=== PATIENT | female | born 1950 | race Caucasian/White ===

== ENCOUNTER 2016-11-10 14:02 | Outpatient (CLI) | payer OTHER ==
[2016-11-10] MEDS ORDERED: FLUMAZENIL 0.5 MG/5 ML MDV IVP ONE (14:32)
[2016-11-10] MEDS ORDERED: MIDAZOLAM 2 MG/2 ML VIAL ONE (14:33)
[2016-11-10] MEDS ORDERED: fentaNYL 100 MCG/2 ML INJ ONE (14:33)
[2016-11-10] MEDS ORDERED: NALOXONE HCL 0.4 MG/ML INJ ONE (14:33)
[2016-11-10] MEDS ORDERED: GADOBUTROL 10 ML VIAL IVP ONE (15:50)
[2016-11-10] MEDS ORDERED: ONDANSETRON 4 MG/2 ML VIAL ONE (16:55)
--- NOTE | 2016-11-10 17:25 | MR ---
MRI of the Brain (Without and With Contrast) with IV moderate/conscious sedation Clinical Indications: History of non-Hodgkin's lymphoma. Slurred speech September 2016. Comparison: None. Intravenous moderate sedation: After witnessed informed consent was obtained. Moderate sedation was p erformed with the uneventful intravenous administration of Versed 3 mg and fentanyl 150 mcg over 1548 -1628 hours, 40 minutes under the supervision of the radiology nurse and consenting radiologist. No i mmediate complications. Technique: T1-weighted images were acquired axially and sagittally from the foramen magnum to the ve rtex. Axial fast inversion-recovery, fast T2-weighted, and diffusion-weighted axial images were obta ined without contrast. Postcontrast axial, coronal and sagittal T1-weighted images with the uneventfu l intravenous administration of 7.5 mL Gadavist contrast. Findings: The ventricles, cisterns, and sulci are widened consistent with atrophy. No hydrocephalus , midline shift, herniation, or epidural/subdural hematomas. No intracranial hemorrhage or masses. Di ffusion-weighted images demonstrate no acute infarct. Cerebellar tonsils are in normal position. Pitu itary gland is normal in size. Normal signal flow-void in the superior sagittal sinus, basilar artery , and bilateral internal carotid arteries indicating patency. Several nonspecific bilateral white mat ter hyperintense T2/FLAIR signal abnormalities without mass effect or enhancement. Mild mucosal thick ening in bilateral ethmoid and maxillary sinuses. In the right frontal lobe anterior lateral aspect a t the level of the lateral ventricles, there is a single subcortical 3-mm focus of enhancement with a ssociated hemosiderin, postcontrast axial image 34 and precontrast axial image 15. Left posterior fro ntal parafalcine 7-mm partially calcified meningioma. Impression: 1. Mild atrophy. 2. No acute hemorrhage, definite acute infarct, hydrocephalus or mass effect. 3. Multiple nonspecific hyperintense T2/FLAIR signal abnormalities in the white matter of bilateral c erebral hemispheres. Differential diagnosis includes moderate microvascular ischemic gliosis, post-in fectious/post-inflammatory sequela, atypical demyelinating disease, or migraine-related sequela. 4. Right frontal lobe subcortical enhancing 3-mm lesion with associated hemosiderin. No additional en hancing lesions. This may represent a tiny solitary hemorrhagic metastasis, but is nonspecific. Follo w up recommended. 5. Left subcentimeter parafalcine extra-axial meningioma.
[2016-11-10] MEDS ORDERED: NS 1,000 ML IV SCH (18:30)
== END 2016-11-10 17:25 | disposition home or self-care (01) ==
LOC: FIMAGING 14:02
PROVIDERS: ATTEND Internal Medicine Hematology & Oncology
DX: R47.81 Slurred speech (principal); Z85.72 Personal history of non-Hodgkin lymphomas; G31.9 Degenerative disease of nervous system, unspecified
CPT/HCPCS: 70553; A9585; J2250; J2405; J3010; J2310

== ENCOUNTER 2018-03-04 10:56 | Inpatient (IN) | payer OTHER ==
[2018-03-04] MEDS ORDERED: ACETAMINOPHEN 500 MG TAB PO ONE (12:17)
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
[2018-03-04] MEDS ORDERED: NS 1,000 ML IV ONE ×2 (13:23)
[2018-03-04] MEDS ORDERED: fentaNYL 100 MCG/2 ML INJ ONE (13:26)
[2018-03-04 13:30] LABS: PLATELET COUNT 174 10^3/uL (150-400)
[2018-03-04 13:38] LABS: INR 0.97 (0.83-1.16); PROTIME(PATIENT) 13.1 SEC (12.0-15.0)
[2018-03-04] MEDS: ONDANSETRON 4 MG/2 ML VIAL IVP ONE (13:40)
--- NOTE | 2018-03-04 13:42 | CPEKG ---
Heart Rate: 75 RR Interval: 800 P-R Interval: 168 QRSD Interval: 92 QT Interval: 404 QTC Interval: 452 P [place]: 21 QRS [place]: 60 T Wave [place]: 63 EKG Severity - NORMAL ECG - EKG Impression: SINUS RHYTHM Electronically Signed By: Brian Shepherd 04-Mar-2018 15:47:01
[2018-03-04] MEDS ORDERED: IMMUNE GLOBULIN 5 GM/50 ML VIAL IV ONE ×2 (15:45→16:45)
[2018-03-04] MEDS ORDERED: IMMUNE GLOBULIN 20 GM/200 ML VIAL IV ONE (15:45)
[2018-03-04] MEDS ORDERED: ACETAMINOPHEN 325 MG TAB PO SCH (15:45)
[2018-03-04] MEDS ORDERED: diphenhydrAMINE 25 MG CAP PO SCH (15:45)
[2018-03-04] MEDS ORDERED: ONDANSETRON 4 MG/2 ML VIAL IVP PRN (15:59)
[2018-03-04] MEDS ORDERED: LR 1,000 ML IV SCH (16:00)
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
[2018-03-04] MEDS: IMMUNE GLOBULIN 20 GM/200 ML VIAL IV ONE ×2 (17:16→19:34)
[2018-03-04] MEDS: AMOXICILLIN/CLAVULANATE POT 875/125 MG TAB PO SCH (20:42)
[2018-03-04] MEDS: ACYCLOVIR 400 MG TAB PO SCH (20:42)
[2018-03-04] MEDS: PANTOPRAZOLE SODIUM 40 MG TAB PO SCH (20:43)
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
[2018-03-04] MEDS: ACETAMINOPHEN 500 MG TAB PO SCH (22:53)
[2018-03-05] MEDS: HYDROmorphONE/DILAUDID 2 MG TAB PO PRN ×3 (01:12→17:52)
[2018-03-05] MEDS ORDERED: BUPIVACAINE 0.5% 30 ML SDV ONE (02:38)
[2018-03-05] MEDS ORDERED: POLYMYXIN B SULFATE 500,000 UNIT/10 ML SYR IRR ONE (02:38)
--- NOTE | 2018-03-05 02:45 | SOAPPROG ---
[facility] Progress Note Assessment/Plan: Assessment: 67-year-old female with progression of what appeared to be relatively benign swelling of her left lower extremity with developing signs and symptoms of compartment syndrome Plan: Patient has been NPO Recommend emergent medial and lateral fasciotomies. Patient understands the risks of surgery including general anesthesia and inherent risks of surgery that include bleeding infection and damage to surrounding anatomic structures specifically with this procedure there is very high risk of need for additional procedures and possible skin grafting. Ultimately the risk of no surgery is higher than surgery itself. 03/05/18 02:45 Subjective: Contacted by for nurse by telephone at 2:07 a.m. Patient was evaluated at the bedside just before 2:30 a.m. She is in much more distressed discomfort with pain located to mostly the medial aspect of the leg. Also noted is some focal decrease in sensation at the mid aspect of the medial leg. She was also administered Dilaudid which is not helping her pain. She is not having any pain over the anterior lateral aspect of her leg. She is still able to move her toes and ankle without significant discomfort. Objective: Vital Signs Temp Pulse Resp BP Pulse Ox 36.6 C 80 16 129/73 H 97 03/04/18 23:23 03/04/18 23:23 03/04/18 23:23 03/04/18 23:23 03/04/18 23:23 03/03/18 03/04/18 03/05/18 05:59 05:59 05:59 Intake Total 1000 Balance 1000 PT 13.1 SEC (12.0-15.0) 03/04/18 13:20 INR 0.97 (0.83-1.16) 03/04/18 13:20 Awake alert and oriented More significant distress due to pain Compartments have increased in swelling but are still compressible. However medially there are significantly tender to palpation there is some increased ecchymosis she notes subjective decreased sensation and the midportion of the medial aspect of the leg in the saphenous nerve distribution as well as in the 2nd and 3rd toes sensation is intact however but diminished compared to the contralateral side. She still has palpable DP and PT pulses no tenderness to palpation over the anterior and lateral compartments. Continues to have sensation in the peroneal nerve distribution as well as distally throughout the foot and ankle with the exception of the 2nd and 3rd toes ICD10 Worksheet Patient Problems: Problems Problem Status Onset Compartment syndrome of left lower extremity Acute
[2018-03-05] MEDS ORDERED: CEFAZOLIN 2 GM/DEXTROSE/100 ML BAG IV ONE (03:07)
--- NOTE | 2018-03-05 03:11 | PDANEPAE ---
ANE History of Present Illness fasciotomies L LE for compartment syndrome ANE Past Medical History - Cardiovascular History Hx Hypertension: No Hx Arrhythmias: No Hx Chest Pain: No Hx Coronary Artery / Peripheral Vascular Disease: No Hx CHF / Valvular Disease: No Hx Palpitations: No - Pulmonary History Hx COPD: No Hx Asthma/Reactive Airway Disease: No Hx Recent Upper Respiratory Infection: Yes Hx Oxygen in Use at Home: No Hx Sleep Apnea: Yes Sleep Apnea Screening Result - Last Documented: Positive Pulmonary History Comment: September 2016 upper respiratory - Neurologic History Hx Cerebrovascular Accident: No Hx Seizures: No Hx Dementia: No Neurologic History Comment: slurred speech recently - Endocrine History Hx Diabetes: No - Renal History Hx Renal Disorders: No - Liver History Hx Hepatic Disorders: No - Neurological & Psychiatric Hx Hx Neurological and Psychiatric Disorders: Yes Neurological / Psychiatric History Comment: slurred speech - Cancer History Hx Cancer: Yes Cancer History Comment: malt lymphoma - Congenital Disorder History Hx Congenital Disorders: No - GI History Hx Gastrointestinal Disorders: Yes Gastrointestinal History Comment: tumors removed from Stomach - Other Health History Other Health History: recieving IGG transfusion - Chronic Pain History Chronic Pain: No - Surgical History Prior Surgeries: tonsillectomy, Cholecystecomy, lacrimal gland left eye, stomach tumors removed ANE Review of Systems Review of Systems: - Exercise capacity Exercise capacity: >=4 METS ANE Patient History - Allergies Allergies/Adverse Reactions: clindamycin Allergy (Intermediate, Verified 08/26/11 08:57) Diarrhea minocycline [From Minocin] Allergy (Verified 03/04/18 11:01) Penicillins Allergy (Verified 08/26/11 08:58) Rash - Home Medications Home medications: home medication list seen and reviewed Home Medications: Acyclovir [Acyclovir] 400 mg PO BID 03/04/18 [Last Taken 03/04/18] Amoxicillin/Potassium Clav [Amox-Clav 875-125 mg Tablet] 1 tab BID 03/04/18 [ Last Taken 03/04/18] Aspirin [Aspirin 81mg (*)] 81 mg PO DAILY 03/04/18 [Last Taken Unknown] Famotidine [Pepcid 20 MG (*)] 20 mg PO DAILY PRN 03/04/18 [Last Taken Unknown] celeCOXIB [CeleBREX] 100 mg PO BID 03/04/18 [Last Taken Unknown] - NPO status NPO Status: no food or drink >8 hours (sips with meds only) NPO Since - Liquids (Date): 03/05/18 NPO Since - Liquids (Time): 01:15 NPO Since - Solids (Date): 03/04/18 NPO Since - Solids (Time): 09:00 - Smoking Hx Smoking Status: Never smoked - Family Anes Hx Family Hx Anesthesia Complications: no ANE Labs/Vital Signs - Labs Result Diagrams: 03/04/18 13:20 03/04/18 13:20 - Vital Signs Blood Pressure: 129/73 Heart Rate: 80 Respiratory Rate: 16 O2 Sat (%): 97 Height: 165.1 cm Weight: 77.111 kg ANE Physical Exam - Airway Mallampati Score: Class 2 Mouth exam: normal dental/mouth exam - Pulmonary Pulmonary: no respiratory distress - Cardiovascular Cardiovascular: regular rate and rhythym - ASA Status ASA Status: II ANE Anesthesia Plan Anesthesia Plan: GA w LMA
[2018-03-05] MEDS ORDERED: PROPOFOL/EMULSION 500 MG/50 ML BOTTLE IV ONE (03:17)
[2018-03-05] MEDS ORDERED: fentaNYL 100 MCG/2 ML INJ ONE (03:17)
[2018-03-05] MEDS ORDERED: DEXAMETHASONE 4 MG/ML VIAL ONE ×2 (04:04)
[2018-03-05] MEDS ORDERED: ONDANSETRON 4 MG/2 ML VIAL ONE ×2 (04:05→04:59)
[2018-03-05] MEDS ORDERED: NALOXONE HCL 0.4 MG/ML INJ IVP PRN (04:13)
[2018-03-05] MEDS ORDERED: fentaNYL 100 MCG/2 ML INJ IVP PRN (04:13)
[2018-03-05] MEDS ORDERED: HYDROmorphONE/DILAUDID 2 MG/ML INJ IVP PRN (04:13)
[2018-03-05] MEDS ORDERED: LR 500 ML IV PRN (04:13)
[2018-03-05] MEDS ORDERED: DEXAMETHASONE 4 MG/ML VIAL IVP PRN (04:13)
[2018-03-05] MEDS ORDERED: PHENYLEPHRINE HCL 100 MCG/ML SYR IVP PRN (04:13)
[2018-03-05] MEDS ORDERED: MEPERIDINE 25 MG/0.5 ML AMP IVP PRN (04:13)
[2018-03-05] MEDS ORDERED: ONDANSETRON 4 MG/2 ML VIAL IVP PRN (04:13)
[2018-03-05] MEDS ORDERED: HYDROCODONE/APAP 5/325 TAB PO PRN (04:13)
[2018-03-05] MEDS ORDERED: METOCLOPRAMIDE 10 MG/2 ML VIAL IVP PRN (04:13)
[2018-03-05] MEDS ORDERED: LABETALOL HCL 5 MG/ML 20 ML MDV IVP PRN (04:13)
[2018-03-05] MEDS ORDERED: oxyCODONE IR 5 MG TAB PO PRN (04:13)
[2018-03-05] MEDS ORDERED: ALBUTEROL 3 ML DEYVIAL IH PRN (04:13)
[2018-03-05] MEDS ORDERED: PROMETHAZINE HCL 25 MG/ML INJ IVP PRN (04:13)
--- NOTE | 2018-03-05 04:39 | POSTOPPROG ---
Post Op Note Date of Operation: 03/05/18 Surgeon: Uvaldo Schmid Anesthesiologist: Zack SARABIA Anesthesia: GET(General Endotracheal) Pre-op Diagnosis: Left leg compartment syndrome Post-op Diagnosis: Left leg subcuanteous degloving injury with subcutaneous hematoma Procedure: Left leg I&D with hematoma evacuation, posterior compartments release Findings: ~300cc suprafascial hematoma Inf/Abcess present in the surg proc area at time of surgery?: No EBL: 50-100 Complications: none
--- NOTE | 2018-03-05 04:59 | POSTANESTH ---
Post Anesthetic Evaluation Cardiovascular Status: Normal, Stable, Similar to Pre-Op Cond Respiratory Status: Normal, Stable, Tx Decrease in SpO2 (O2 by NC) Level of Consciousness/Mental Status: Can Participate in Eval, Mildly Sleepy, Arousable Pain Control: Inadeq, Add Tx Required (fentanyl being given) Nausea/Vomiting Control: Adequate, Prn Tx Ordered Complications Possibly Related to Anesthesia: None Noted
[2018-03-05] MEDS ORDERED: PROMETHAZINE HCL 25 MG/ML INJ ONE (05:10)
[2018-03-05] MEDS ORDERED: PETROLAT,WHT/MIN OIL/SOD CHL 3.5 GM OPHT.OINT EACHEYE PRN (10:18)
--- NOTE | 2018-03-05 10:52 | SOAPPROG ---
SOAP Progress Note Assessment/Plan: Assessment: possible corneal abrasion. Plan: Dr. Huff consulted by phone. EES opthalmic ointment recomended Qid. Will contact semiconductor processing group leader opthalmologists if no improvement over 24 hours. 03/05/18 10:50 Objective: Vital Signs Temp Pulse Resp BP Pulse Ox 37.6 C 82 18 140/70 H 90 L 03/05/18 08:45 03/05/18 08:45 03/05/18 08:45 03/05/18 08:45 03/05/18 08:45 03/04/18 03/05/18 03/06/18 05:59 05:59 05:59 Intake Total 2200 Output Total 325 Balance 1875 PT 13.1 SEC (12.0-15.0) 03/04/18 13:20 INR 0.97 (0.83-1.16) 03/04/18 13:20 ICD10 Worksheet Patient Problems: Problems Problem Status Onset Compartment syndrome of left lower extremity Acute
[2018-03-05] MEDS: ACETAMINOPHEN 500 MG TAB PO SCH ×3 (10:55→23:32)
[2018-03-05] MEDS: ceFAZolin 2 GM/DEXTROSE 100 ML IV SCH ×2 (11:02→18:08)
[2018-03-05] MEDS: ASPIRIN EC 81 MG TAB PO SCH (11:04)
[2018-03-05] MEDS: ACYCLOVIR 400 MG TAB PO SCH ×2 (11:04→20:48)
[2018-03-05] MEDS: PANTOPRAZOLE SODIUM 40 MG TAB PO SCH (11:04)
--- NOTE | 2018-03-05 13:24 | TRAUMAPNT ---
Trauma Tertiary Progress Note New Findings: Patient went to OR at 3 AM for exploration due to increasing pain. Subcutaneous hematoma found, compartments released. She did suffer a corneal abrasion. Assessment/Plan: PAD#1 Assessment: Doing well without new findings Plan: Discharge plans per Dr. Schmid Subjective: My eye pain has resolved with the ointment Objective: Vital Signs Temp Pulse Resp BP Pulse Ox 36.9 C 88 17 134/65 H 90 L 03/05/18 11:16 03/05/18 11:16 03/05/18 11:16 03/05/18 11:16 03/05/18 11:16 03/04/18 03/05/18 03/06/18 05:59 05:59 05:59 Intake Total 2200 Output Total 325 Balance 1875 PT 13.1 SEC (12.0-15.0) 03/04/18 13:20 INR 0.97 (0.83-1.16) 03/04/18 13:20 - C-Spine Clearance Cervical Spine Cleared: Yes Provider who Cleared Cervical Spine: Clem Physical Exam - Physical Exam General Appearance: WD/WN, alert, no apparent distress EENT: other (Left eye patched) Neck: non-tender, full range of motion, supple, normal inspection Respiratory: chest non-tender, lungs clear, normal breath sounds Cardiac/Chest: regular rate, rhythm Abdomen: normal bowel sounds, non-tender, soft Pelvic Exam: deferred Rectal: deferred Back: Normal inspection Skin: normal color, warm/dry Extremities: normal range of motion, other (left lower leg incision dressing dry and intact) Neuro/Psych: no motor/sensory deficits, alert, normal mood/affect, oriented x 3 Time Spent w/Patient (minutes): 25
[2018-03-05] MEDS: ERYTHROMYCIN 0.5% 1 GM OPHT.OINT LEFTEYE SCH ×3 (14:46→20:49)
--- NOTE | 2018-03-05 14:53 | ASMTCASEMG ---
Living Arrangements What is your living Answers: With Spouse arrangement? Who do you live with? Type Of Residence What kind of residence do Answers: House you live in? Discharge Plan Comments Coordination Status Comments Notes: Pt is a 67 y/o female admitted for a crush injury RLE. Therapies have been ordered and awaiting recommendations. Needs are TBD at this time. Jahaira Dela Cruz is following this case to determine appropriateness for inpatient rehab. CM to follow. Plan: TBD Date Signed: 03/05/2018 02:52 PM Electronically Signed By:JUNG Howell
--- NOTE | 2018-03-05 14:55 | SOAPPROG ---
SOAP Progress Note Assessment/Plan: Assessment: 67-year-old female 12 hr status post right leg hematoma evacuation superficial and deep posterior compartment release with primary closure. Plan: Corneal abrasion management by primary service, considering ophtho eval if no improvement 24 hr Weight bear as tolerated with assistance, PT OT Elevate and ice and compress Ambulation, Ft pump and SCDs for DVT prophylaxis Analgesics as needed Incentive spirometry 10 times per hour Reinforced dressings as needed Continue neurovascular checks q.2 hours Dispo: Likely home tomorrow 03/05/18 14:53 03/05/18 14:56 Subjective: Patient's preoperative pain has completely resolved. She denies any numbness and tingling whatsoever. She denies any significant pain. Did have some terrible left eye pain following surgery this morning. this is resolved with ointment treating a corneal abrasion. Denies fevers chills nausea vomiting chest pain shortness of breath numbness or tingling Objective: Vital Signs Temp Pulse Resp BP Pulse Ox 36.9 C 88 17 134/65 H 90 L 03/05/18 11:16 03/05/18 11:16 03/05/18 11:16 03/05/18 11:16 03/05/18 11:16 03/04/18 03/05/18 03/06/18 05:59 05:59 05:59 Intake Total 2200 Output Total 325 Balance 1875 PT 13.1 SEC (12.0-15.0) 03/04/18 13:20 INR 0.97 (0.83-1.16) 03/04/18 13:20 Awake alert and oriented x3 no acute distress Easy nonlabored breathing Left lower extremity: Dressings clean dry and intact Evolving ecchymosis Compartments soft compressible and nontender Sensation intact to light touch from L4-S1 Motor intact to EHL FHL tibialis anterior gastrocsoleus Palpable DP PT pulses - Time Spent With Patient Time Spent With Patient: 15 - Pending Discharge Pending Discharge Within 24 Hours: Yes Pending Discharge Date: 03/06/18 Pending Discharge Time: 11:00 ICD10 Worksheet Patient Problems: Problems Problem Status Onset Compartment syndrome of left lower extremity Acute
[2018-03-05 15:16] LABS: PLATELET COUNT 145 10^3/uL (150-400)
--- NOTE | 2018-03-05 16:16 | PDMN ---
Medical Necessity Medical necessity: Change to IP, as of 03/05/18, per MD; los >2 mn s/p R leg hematoma evacuation & compartment release w/primary closure, as well as corneal abrasion r/t trauma; admit for further monitoring & therapies; per progress note & order 03/05/18
[2018-03-06] MEDS: ERYTHROMYCIN 0.5% 1 GM OPHT.OINT LEFTEYE SCH (06:04)
[2018-03-06 07:32] VITALS: BP 121/63
[2018-03-06] MEDS: ASPIRIN EC 81 MG TAB PO SCH (08:35)
[2018-03-06] MEDS: PANTOPRAZOLE SODIUM 40 MG TAB PO SCH (08:35)
[2018-03-06] MEDS: ACYCLOVIR 400 MG TAB PO SCH (08:35)
[2018-03-06] MEDS: ACETAMINOPHEN 500 MG TAB PO SCH (08:35)
--- NOTE | 2018-03-06 09:15 | SOAPPROG ---
SOAP Progress Note Assessment/Plan: Assessment: 67-year-old female POD#1 s/p left leg hematoma evacuation superficial and deep posterior compartment release with primary closure. Plan: Corneal abrasion significantly improved Weight bear as tolerated with assistance, PT OT Elevate and ice and compress Ambulation, Ft pump and SCDs for DVT prophylaxis Analgesics as needed Incentive spirometry 10 times per hour Leave dressing open to air once there is no drainage Continue neurovascular checks q.2 hours Dispo: d/c home today 03/05/18 14:53 03/05/18 14:56 03/06/18 09:11 Subjective: No acute events overnight. Pain and very well controlled. Denies fevers chills nausea vomiting chest pain shortness of breath numbness or tingling. No recurrence of pain. Left eye pain and swelling after corneal abrasion significantly improved today. Wearing glasses. Anxious to go home. Objective: Vital Signs Temp Pulse Resp BP Pulse Ox 36.7 C 91 16 121/63 H 96 03/06/18 07:31 03/06/18 07:31 03/06/18 07:31 03/06/18 07:31 03/06/18 07:31 Laboratory Results 03/05/18 15:00 03/05/18 15:00 03/05/18 03/06/18 03/07/18 05:59 05:59 05:59 Intake Total 2200 1000 Output Total 325 Balance 1875 1000 PT 13.1 SEC (12.0-15.0) 03/04/18 13:20 INR 0.97 (0.83-1.16) 03/04/18 13:20 Awake alert oriented x3 no acute distress Easy nonlabored breathing Left lower extremity: Dressing changed, incision clean dry intact no erythema drainage or signs of infection All 4 compartments soft compressible and nontender Sensation intact to light touch L4-S1 Motor intact to EHL FHL tibialis anterior gastrocsoleus Palpable DP PT pulses - Time Spent With Patient Time Spent With Patient: 15 - Pending Discharge Pending Discharge Within 24 Hours: Yes Pending Discharge Date: 03/06/18 Pending Discharge Time: 11:00 ICD10 Worksheet Patient Problems: Problems Problem Status Onset Compartment syndrome of left lower extremity Acute
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
[2018-03-06] MEDS: AMOXICILLIN/CLAVULANATE POT 875/125 MG TAB PO SCH (13:36)
--- NOTE | 2018-03-06 18:20 | ASMTLACE ---
STEVENE Length of stay for Answers: 1 day current admission Acuity / Level of Answers: Yes Care: Did the patient have an inpatient admission? # of Emergency department Answers: 1-2 visits in the last 6 months Score: 5 Date Signed: 03/06/2018 06:20 PM Electronically Signed By:Chayo De Leon RN
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
== END 2018-03-06 12:26 | disposition home or self-care (01) | DRG 580 ==
LOC: INTOOBSV 16:01 → OBSVTOIN 16:09 → F3N 18:26
PROVIDERS: ADMIT Surgery; ATTEND Surgery
PROC: 0K9T0ZZ Drainage of Left Lower Leg Muscle, Open Approach (ICD-10-PCS; principal; 2018-03-05 03:00)
PROC: 0J9P0ZZ Drainage of Left Lower Leg Subcutaneous Tissue and Fascia, Open Approach (ICD-10-PCS; principal; 2018-03-05 03:00)
DX: S80.12XA Contusion of left lower leg, initial encounter (principal); T79.A22A Traumatic compartment syndrome of left lower extremity, initial encounter; C88.4 Extranodal marginal zone B-cell lymphoma of mucosa-associated lymphoid tissue [MALT-lymphoma]; K21.9 Gastro-esophageal reflux disease without esophagitis; Z88.0 Allergy status to penicillin
CPT/HCPCS: 96374; 97161-GP; 97165-GO; G0378; G8978-GP-CI; G8979-GP-CI; G8980-GP-CI; G8987-GO-CI; G8988-GO-CI; G8989-GO-CI; J0690; J1100; J1459; J2405; J2550; J2704; J3010